=== PATIENT | male | born 1940 | race Caucasian/White ===

== ENCOUNTER → 2016-05-14 08:29 | Outpatient (CLI) | payer MEDICARE, OTHER | END | disposition home or self-care (01) | LOC: D.CT 08:29 | DX: R91.8 Other nonspecific abnormal finding of lung field (principal) ==

== ENCOUNTER → 2017-10-25 07:03 | Outpatient (CLI) | payer MEDICARE | END | disposition home or self-care (01) | LOC: D.MRI 07:03 | DX: S22.080A Wedge compression fracture of T11-T12 vertebra, initial encounter for closed fracture (principal); X58.XXXA Exposure to other specified factors, initial encounter ==

== ENCOUNTER → 2018-09-29 12:32 | Outpatient (CLI) | payer MEDICARE | END | disposition home or self-care (01) | LOC: D.LAB 10:45 → D.RT 13:00 | PROVIDERS: ATTEND Internal Medicine Pulmonary Disease | DX: J44.9 Chronic obstructive pulmonary disease, unspecified (principal); R93.89 Abnormal findings on diagnostic imaging of other specified body structures ==

== ENCOUNTER 2019-11-11 05:57 | Inpatient (IN) | payer MEDICARE ==
[~2019-11-11] VITALS: Ht 172.7 cm; Wt 68.0 kg
[2019-11-11] MEDS ORDERED: UNSURE OF MEDS (06:04)
[2019-11-11 06:32] LABS: BASOPHILS 0.1 % (0-2); EOSINOPHILS 0 % (0-7); HEMATOCRIT 42.5 % (42.0-54.0); HEMOGLOBIN 14.2 g/dL (13.5-17.5); IMMATURE GRANULOCYTES 0.7 % (0-5); LYMPHOCYTES 7.8 % (15-50); MCH 29.4 pg (26.0-34.0); MCHC 33.4 g/dL (31.0-37.0); MEAN PLATELET VOLUME 10.9 fL (7.4-10.4); MONOCYTES 8.3 % (2-11); NEUTROPHILS 83.1 % (40-80); PLATELET COUNT 154 10x3/uL (130-400); RBC 4.83 10x6/uL (4.20-6.10); WBC 13.7 10x3/uL (4.8-10.8)
[2019-11-11 06:39] LABS: BILIRUBIN NEGATIVE (NEGATIVE); GLUCOSE NEGATIVE (NEGATIVE); KETONE NEGATIVE (NEGATIVE); NITRITE NEGATIVE (NEGATIVE); UROBILINOGEN NORMAL (NORMAL)
[2019-11-11 06:50] LABS: CALC OSMOLALITY 271 mosm/kg (275-300); CALCIUM 8.5 mg/dL (8.5-10.1); CARBON DIOXIDE 32.6 mmol/L (21.0-32.0); CHLORIDE - SERUM 98 mmol/L (98-107); GLUCOSE 104 mg/dL (74-106); SODIUM 135 mmol/L (136-145); UREA NITROGEN 17 mg/dL (7-18); eGFR NON AFRICAN AMERICAN 76 mL/min (90-120)
[2019-11-11 06:53] LABS: ALBUMIN 3.4 g/dL (3.4-5.0); ALKALINE PHOSPHATASE 62 U/L (30-120); ALT (SGPT) 40 U/L (10-68); BILIRUBIN - TOTAL 0.78 mg/dL (0.2-1.3); PROTEIN - SERUM 7.3 g/dL (6.4-8.2)
--- NOTE | 2019-11-11 07:24 | NUR ---
PT UP TO BEDSIDE COMMODE, COVID PRECAUTIONS IN PLACE.
--- NOTE | 2019-11-11 08:34 | NUR ---
WAITING FOR BLOOD CULTURES TO BE DRAWN SO ANTIBIOTICS CAN BE STARTED.
--- NOTE | 2019-11-11 10:18 | NUR ---
RECEIVED PT TO ROOM 2133 VIA WHEELCHAIR, PT ABLE TO AMBULATE FROM WHEELCHAIR TO BED. PLACED ON DROPLET ISOLATION FOR COVID 19. PT A/O X4, RESP EVEN AND NONLABORED ON RA. ORIENTED PT TO ROOM AND CALL LIGHT. WILL ASSSESS PT AND START PLAN OF CARE.
[2019-11-11] MEDS ORDERED: BAYER CHEWABLE81 MG PO (10:20)
[2019-11-11] MEDS ORDERED: FLOMAX0.4 MG PO (10:20)
[2019-11-11] MEDS ORDERED: ISOSORBIDE MONO30 M1 PO (10:20)
[2019-11-11] MEDS ORDERED: LIPITOR40 MG PO (10:20)
[2019-11-11] MEDS ORDERED: VENTOLIN HFA [SP8 GM INH (10:21)
[2019-11-11] MEDS ORDERED: ANORO ELLIPTA1 EACH INH (10:22)
[2019-11-11 10:29] VITALS: BP 143/76; BMI 22.8
[2019-11-11 11:11] LABS: C-REACTIVE PROTEIN 5.1 mg/dL (0.0-0.9)
[2019-11-11 14:56] VITALS: BP 158/83
--- NOTE | 2019-11-11 14:58 | NUR ---
FEVER OF 100.6, 650MG OF TYLENOL GIVEN AT THIS TIME. ALSO PLACED A 14F CAUDE NOLEN CATHTER, PT TOLERATED PROCEDURE WELL. PT DENIES ANY NEEDS AT THIS TIME. CALL LIGHT IN REACH, NAD NOTED, WILL CONTINUE TO MONITOR.
[2019-11-11 16:56] VITALS: BP 130/70
[2019-11-11 22:03] VITALS: BP 159/86
[2019-11-12 04:52] VITALS: BP 147/82
[2019-11-12 07:01] LABS: ALBUMIN 2.7 g/dL (3.4-5.0); ALKALINE PHOSPHATASE 53 U/L (30-120); ALT (SGPT) 30 U/L (10-68); BILIRUBIN - TOTAL 0.64 mg/dL (0.2-1.3); CALC OSMOLALITY 273 mosm/kg (275-300); CALCIUM 8.3 mg/dL (8.5-10.1); CARBON DIOXIDE 27.8 mmol/L (21.0-32.0); CHLORIDE - SERUM 102 mmol/L (98-107); GLUCOSE 95 mg/dL (74-106); PROTEIN - SERUM 6.3 g/dL (6.4-8.2); SODIUM 136 mmol/L (136-145); UREA NITROGEN 17 mg/dL (7-18); eGFR NON AFRICAN AMERICAN 76 mL/min (90-120)
[2019-11-12 07:02] LABS: POTASSIUM - SERUM 3.5 mmol/L (3.5-5.1)
[2019-11-12 07:50] LABS: BASOPHILS 0.1 % (0-2); EOSINOPHILS 0 % (0-7); HEMATOCRIT 42.2 % (42.0-54.0); IMMATURE GRANULOCYTES 0.4 % (0-5); LYMPHOCYTES 5.9 % (15-50); MCH 29.2 pg (26.0-34.0); MCHC 33.2 g/dL (31.0-37.0); MCV 88.1 fL (80.0-100.0); MONOCYTES 7.6 % (2-11); PLATELET COUNT 153 10x3/uL (130-400); RBC 4.79 10x6/uL (4.20-6.10); RDW 14.4 % (11.5-14.5)
--- NOTE | 2019-11-12 08:00 | NUR ---
PT SITTING UP IN BED, RR EVEN AND UNLABORED. DENIES NEEDS OR PAIN AT THIS TIME. CALL LIGHT WITHIN REACH. BED IN LOWEST POSITION. WILL CONTINUE TO MONITOR.
[2019-11-12 08:23] VITALS: BP 135/80
[2019-11-12 12:02] VITALS: BP 166/87
[2019-11-12 13:49] VITALS: Ht 172.7 cm; Wt 68.0 kg
[2019-11-12 17:10] VITALS: BP 149/83
[2019-11-12 20:55] VITALS: BP 114/65
[2019-11-13 07:15] LABS: BASOPHILS 0.2 % (0-2); EOSINOPHILS 1.1 % (0-7); HEMATOCRIT 40.9 % (42.0-54.0); HEMOGLOBIN 13.4 g/dL (13.5-17.5); IMMATURE GRANULOCYTES 0.7 % (0-5); LYMPHOCYTES 12.3 % (15-50); MCH 28.9 pg (26.0-34.0); MCHC 32.8 g/dL (31.0-37.0); MCV 88.3 fL (80.0-100.0); MEAN PLATELET VOLUME 11.2 fL (7.4-10.4); MONOCYTES 12.2 % (2-11); NEUTROPHILS 73.5 % (40-80); PLATELET COUNT 116 10x3/uL (130-400); RBC 4.63 10x6/uL (4.20-6.10); RDW 14.3 % (11.5-14.5); WBC 5.5 10x3/uL (4.8-10.8)
[2019-11-13 07:29] LABS: ALBUMIN 2.3 g/dL (3.4-5.0); ALKALINE PHOSPHATASE 47 U/L (30-120); ALT (SGPT) 33 U/L (10-68); BILIRUBIN - TOTAL 0.43 mg/dL (0.2-1.3); CALCIUM 8.1 mg/dL (8.5-10.1); CARBON DIOXIDE 27.9 mmol/L (21.0-32.0); CHLORIDE - SERUM 105 mmol/L (98-107); CREATININE - SERUM 0.9 mg/dL (0.6-1.3); GLUCOSE 101 mg/dL (74-106); POTASSIUM - SERUM 3.6 mmol/L (3.5-5.1); PROTEIN - SERUM 5.9 g/dL (6.4-8.2); SODIUM 138 mmol/L (136-145); eGFR NON AFRICAN AMERICAN 86 mL/min (90-120)
[2019-11-13 07:31] LABS: CALC OSMOLALITY 278 mosm/kg (275-300); UREA NITROGEN 22 mg/dL (7-18)
[2019-11-13 09:19] VITALS: BP 123/59
[2019-11-13 11:45] VITALS: BP 124/63
[2019-11-13 16:38] VITALS: BP 137/60
--- NOTE | 2019-11-13 19:30 | NUR ---
REPORT RECEIVED AND ROUNDING COMPLETE. PATIENT LAYING IN BED IN HIGH FOWLERS POSITION TALKING ON HIS CELLPHONE, NO DISTRESS NOTED, WEARING NASAL CANNULA WITH O2 AT 2L, PIV TO THE LEFT AC, PIV PATENT AND RUNNING FLUIDS AT THIS TIME. VOICED NO NEEDS AND WILL CALL NURSE IF THE NEED ARISES, CALL LIGHT WITHIN REACH AND BED IN LOWEST LOCKED POSITION.
[2019-11-13 20:00] VITALS: BP 146/77
[2019-11-14 04:00] VITALS: BP 157/82
[2019-11-14 08:51] VITALS: BP 161/68
--- NOTE | 2019-11-14 10:07 | NUR ---
PT SITTING UP IN BED, RR EVEN AND UNLABORED. DENIES NEEDS OR PAIN AT THIS TIME. CALL LIGHT WTIHIN RECH, BED IN LOWEST POSITION. WILL CONTINUE TO MONITOR.
--- NOTE | 2019-11-14 12:31 | NUR ---
I have reviewed this patient and I concur with the Shift Assessment completed by the Licensed Practical Nurse today this shift.
[2019-11-14 13:29] VITALS: BP 144/73
--- NOTE | 2019-11-14 14:03 | NUR ---
Nutrition Follow-up: Pt in droplet isolation; covid-19 +. No PO intake recorded but nursing reports no issues with PO intake. Noted diarrhea resolved. Diet: Cardiac Wt: 150# (11/11) Labs reviewed Meds noted: Pepcid, vitamin D, vitamin C, NS @ 30 -Encourage PO intake and honor food preferences within diet restrictions. -Monitor wt. -RD following.
--- NOTE | 2019-11-14 14:44 | NUR ---
I have reviewed this patient and I concur with the Shift Assessment completed by the Licensed Practical Nurse today this shift.
[2019-11-14 18:54] LABS: BASOPHILS 0 % (0-2); EOSINOPHILS 0 % (0-7); HEMATOCRIT 39.7 % (42.0-54.0); HEMOGLOBIN 13.5 g/dL (13.5-17.5); IMMATURE GRANULOCYTES 0.3 % (0-5); LYMPHOCYTES 6.7 % (15-50); MCH 29.2 pg (26.0-34.0); MEAN PLATELET VOLUME 10.2 fL (7.4-10.4); MONOCYTES 8.7 % (2-11); NEUTROPHILS 84.3 % (40-80); RBC 4.63 10x6/uL (4.20-6.10); RDW 13.9 % (11.5-14.5); WBC 6.3 10x3/uL (4.8-10.8)
[2019-11-14 18:58] LABS: MCV 85.7 fL (80.0-100.0); PLATELET COUNT 194 10x3/uL (130-400)
[2019-11-14 19:14] LABS: ALBUMIN 2.7 g/dL (3.4-5.0); ALKALINE PHOSPHATASE 57 U/L (30-120); BILIRUBIN - TOTAL 0.33 mg/dL (0.2-1.3); CALCIUM 8.6 mg/dL (8.5-10.1); CARBON DIOXIDE 24.9 mmol/L (21.0-32.0); CHLORIDE - SERUM 105 mmol/L (98-107); POTASSIUM - SERUM 3.6 mmol/L (3.5-5.1); PROTEIN - SERUM 6.3 g/dL (6.4-8.2); SODIUM 138 mmol/L (136-145); UREA NITROGEN 20 mg/dL (7-18); eGFR NON AFRICAN AMERICAN 76 mL/min (90-120)
[2019-11-14 19:24] LABS: ALT (SGPT) 93 U/L (10-68); CALC OSMOLALITY 282 mosm/kg (275-300); GLUCOSE 169 mg/dL (74-106)
[2019-11-14 20:00] VITALS: BP 159/73
[2019-11-15 04:00] VITALS: BP 169/74
[2019-11-15 06:34] LABS: ALBUMIN 2.4 g/dL (3.4-5.0); ALKALINE PHOSPHATASE 49 U/L (30-120); ALT (SGPT) 93 U/L (10-68); CALC OSMOLALITY 284 mosm/kg (275-300); CALCIUM 7.8 mg/dL (8.5-10.1); CARBON DIOXIDE 30.6 mmol/L (21.0-32.0); CHLORIDE - SERUM 107 mmol/L (98-107); CREATININE - SERUM 0.9 mg/dL (0.6-1.3); GLUCOSE 120 mg/dL (74-106); POTASSIUM - SERUM 3.3 mmol/L (3.5-5.1); PROTEIN - SERUM 6.1 g/dL (6.4-8.2); SODIUM 141 mmol/L (136-145); UREA NITROGEN 20 mg/dL (7-18); VANCOMYCIN - TROUGH 11.7 ug/mL (10.0-20.0); eGFR NON AFRICAN AMERICAN 86 mL/min (90-120)
[2019-11-15 06:45] LABS: BASOPHILS 0 % (0-2); EOSINOPHILS 0 % (0-7); HEMATOCRIT 37.2 % (42.0-54.0); HEMOGLOBIN 12.6 g/dL (13.5-17.5); IMMATURE GRANULOCYTES 0.1 % (0-5); LYMPHOCYTES 10.2 % (15-50); MCH 29.2 pg (26.0-34.0); MCHC 33.9 g/dL (31.0-37.0); MCV 86.3 fL (80.0-100.0); MEAN PLATELET VOLUME 10.3 fL (7.4-10.4); MONOCYTES 11.6 % (2-11); NEUTROPHILS 78.1 % (40-80); PLATELET COUNT 180 10x3/uL (130-400); RBC 4.31 10x6/uL (4.20-6.10); WBC 7.2 10x3/uL (4.8-10.8)
[2019-11-15 08:27] VITALS: BP 164/79
[2019-11-15 11:38] VITALS: BP 140/72
[2019-11-15 12:10] LABS: IMMUNOGLOBULIN E 162 IU/mL (6-495)
[2019-11-15 15:40] VITALS: BP 134/70
--- NOTE | 2019-11-15 19:10 | NUR ---
recieved rounding report and answered pt request for icecream bed low and locked and call light is with pt
[2019-11-15 22:28] VITALS: BP 145/74
[2019-11-16 05:10] LABS: BASOPHILS 0 % (0-2); EOSINOPHILS 0 % (0-7); HEMATOCRIT 37.5 % (42.0-54.0); HEMOGLOBIN 12.4 g/dL (13.5-17.5); IMMATURE GRANULOCYTES 0.4 % (0-5); LYMPHOCYTES 10.5 % (15-50); MCH 28.5 pg (26.0-34.0); MCHC 33.1 g/dL (31.0-37.0); MCV 86.2 fL (80.0-100.0); MEAN PLATELET VOLUME 10.7 fL (7.4-10.4); NEUTROPHILS 77.1 % (40-80); PLATELET COUNT 192 10x3/uL (130-400); RBC 4.35 10x6/uL (4.20-6.10); RDW 14.1 % (11.5-14.5); WBC 7.6 10x3/uL (4.8-10.8)
[2019-11-16 05:37] LABS: ALBUMIN 2.4 g/dL (3.4-5.0); ALKALINE PHOSPHATASE 51 U/L (30-120); BILIRUBIN - TOTAL 0.51 mg/dL (0.2-1.3); CALC OSMOLALITY 287 mosm/kg (275-300); CARBON DIOXIDE 31.7 mmol/L (21.0-32.0); CHLORIDE - SERUM 107 mmol/L (98-107); CREATININE - SERUM 0.9 mg/dL (0.6-1.3); GLUCOSE 113 mg/dL (74-106); POTASSIUM - SERUM 3.5 mmol/L (3.5-5.1); SODIUM 143 mmol/L (136-145); UREA NITROGEN 18 mg/dL (7-18); eGFR NON AFRICAN AMERICAN 86 mL/min (90-120)
[2019-11-16 05:38] LABS: ALT (SGPT) 138 U/L (10-68)
[2019-11-16 05:51] VITALS: BP 146/66
[2019-11-16 07:15] VITALS: BP 159/78
--- NOTE | 2019-11-16 09:31 | NUR ---
PT ALERT AND ORIENTED X4 UPON ENTERING, UPRIGHT IN BED. ADMINISTERED MEDICATION, NO DIFFICULTIES. DENIES ANY NEEDS. BED IN LOWEST POSITION, BED RAILS X2, CALL LIGHT WITHIN REACH. WILL CONTINUE TO MONITOR.
[2019-11-16 10:12] VITALS: BP 142/71
[2019-11-16] MEDS ORDERED: TESSALON PERLE100 MG PO (11:17)
[2019-11-16] MEDS ORDERED: SINGULAIR10 MG PO (11:17)
[2019-11-16] MEDS ORDERED: DALIRESP250 MCG PO (11:18)
[2019-11-16] MEDS ORDERED: FLUTICASONE PRO16 GM NASAL (11:18)
[2019-11-16] MEDS ORDERED: DECADRON4 MG PO (11:20)
[2019-11-16] MEDS ORDERED: CLINDAMYCIN HC300 MG PO (11:37)
[2019-11-16] MEDS ORDERED: LEVOFLOXACIN500 MG PO (11:37)
--- NOTE | 2019-11-16 13:41 | NUR ---
REMOVED IV FROM LEFT AC, CATHETER TIP INTACT, TOLERATED WELL. REMOVED 10 ML SALINE FOR NOLEN BULB AND REMOVED NOLEN, DRAINED 2500ML URINE FROM BAG, TOLERATED WELL. PT HAS SIGNED ALL NECESSARY DISCHARGE PAPERWORK. PT IS GETTING DRESSED. HAS BEEN EDUCATED THAT PT HAS TO URINATE BEFORE BEING ABLE TO LEAVE THE FACILITY, DEMONSTRATES UNDERSTANDING. DENIES ANY NEEDS/HELP. WILL CONTINUE TO MONITOR.
--- NOTE | 2019-11-16 14:25 | NUR ---
PT URINATED, HELPED PT INTO WHEELCHAIR, ESCORTED OUT.
== END 2019-11-16 14:25 | disposition home or self-care (01) | DRG 177 ==
LOC: D.ER 05:57 → D.M2 09:10
PROVIDERS: Emergency Medicine; Family Medicine; Internal Medicine Pulmonary Disease; ADMIT Emergency Medicine; ATTEND Emergency Medicine
DX: U07.1 COVID-19 (principal); J12.89 Other viral pneumonia; J96.01 Acute respiratory failure with hypoxia; J44.1 Chronic obstructive pulmonary disease with (acute) exacerbation; E86.0 Dehydration; I10 Essential (primary) hypertension; I25.10 Atherosclerotic heart disease of native coronary artery without angina pectoris; J30.9 Allergic rhinitis, unspecified; E78.5 Hyperlipidemia, unspecified; E87.6 Hypokalemia; N40.0 Benign prostatic hyperplasia without lower urinary tract symptoms; R33.9 Retention of urine, unspecified; D72.829 Elevated white blood cell count, unspecified